=== PATIENT | female | born 1940 | race Caucasian/White ===

== ENCOUNTER 2016-10-06 19:55 | Emergency (ER) | payer OTHER ==
[~2016-10-06] VITALS: Ht 157.5 cm; Wt 56.2 kg
[2016-10-06 20:24] VITALS: BP 147/73
== END 2016-10-06 22:20 | disposition home or self-care (01) ==
LOC: ER 19:57
DX: S51.812A Laceration without foreign body of left forearm, initial encounter (principal); M19.90 Unspecified osteoarthritis, unspecified site; E11.9 Type 2 diabetes mellitus without complications; E07.9 Disorder of thyroid, unspecified; X58.XXXA Exposure to other specified factors, initial encounter; Y93.89 Activity, other specified; Y99.8 Other external cause status; Y92.89 Other specified places as the place of occurrence of the external cause

== ENCOUNTER 2016-10-10 22:40 | Inpatient (IN) | payer OTHER ==
[~2016-10-10] VITALS: Ht 157.5 cm; Wt 59.4 kg
[2016-10-10 23:32] LABS: Urine RBC None Seen /hpf (0 - 4)
[2016-10-10 23:39] LABS: Urine Bilirubin Negative (Negative); Urine Blood Negative /uL (Negative); Urine Color Yellow (Yellow); Urine Glucose Normal (Normal); Urine Ketone Negative (Negative); Urine Nitrite Negative (Negative); Urine Squamous Epithelial Cell FEW /hpf (<5); Urine Urobilinogen Normal (Negative)
[2016-10-11] LABS: Basophils # (auto) 0.1 uL; Basophils % (auto) 0.6 % (0.0-2.0); Eosinophils # (auto) 0.1 uL; Eosinophils % (auto) 0.3 % (0.0-7.0); Hematocrit 34.3 % (36.0-46.0); Hemoglobin 11.4 g/dL (12.2-16.2); Lymphocytes # (auto) 1.6 uL; Lymphocytes % (auto) 8.6 % (10.0-50.0); Mean Corpuscular Hgb Conc. 33.3 g/dL (32.0-36.0); Mean Corpuscular Volume 93.3 fL (80.0-100.0); Mean Platelet Volume 8.2 fL (7.4-10.4); Monocytes # (auto) 1.5 uL; Monocytes % (auto) 7.9 % (0.0-12.0); Neutrophils # (auto) 15.1 uL; Neutrophils % (auto) 82.6 % (37.0-80.0); Platelet Count (auto) 372 10^3/uL (140-450); Red Cell Distribution Width 13.8 % (11.6-16.0); SUSPECT VIEW TRANSMISSION; White Blood Cell 18.4 10^3/uL (4.4-10.8)
[2016-10-11 00:11] LABS: Albumin 3.5 g/dL (3.4-5.0); BUN/Creatinine Ratio 33.1; Potassium 3.7 mmol/L (3.5-5.1)
[2016-10-11 00:14] LABS: Bilirubin, Total 0.1 mg/dL (0.2-1.0); Total Protein 7.3 g/dL (6.4-8.2)
[2016-10-11] MEDS: SODIUM CHLORIDE 0.9% 1,000 ML IV ONE ×2 (06:57→07:30)
[2016-10-11] MEDS ORDERED: cefTRIAXone 1GM/50ML D5W 50 ML IV ONE (07:30)
[2016-10-11] MEDS ORDERED: DEXTROSE 10% 1,000 ML IV ONE (08:00)
[2016-10-11] MEDS ORDERED: LACTULOSE 20Gm/30ML SOLN PO PRN (09:15)
[2016-10-11] MEDS ORDERED: NITROGLYCERIN 0.4 MG SL TAB SL PRN (09:15)
[2016-10-11] MEDS ORDERED: LORazepam 0.5 MG TAB PO PRN (09:15)
[2016-10-11] MEDS ORDERED: HYDROcodone-ACET 5/325MG TAB PO PRN (09:15)
[2016-10-11] MEDS ORDERED: ACETAMINOPHEN 500 MG TAB PO PRN (09:15)
[2016-10-11] MEDS ORDERED: TEMAZEPAM 15 MG CAP PO PRN (09:15)
[2016-10-11] MEDS ORDERED: MORPHINE SULF INJ 2 MG/ML SYRINGE 1ML IV PRN ×2 (09:15)
[2016-10-11] MEDS ORDERED: PROMETHAZINE HCL 25 MG/ML 1ML IV PRN (09:15)
[2016-10-11] MEDS: D5W/SOD CHLO 0.9% 1,000 ML IV SCH ×2 (09:45→22:31)
[2016-10-11] MEDS: ENOXAPARIN SOD 40 MG/0.4 ML SYRINGE SC SCH (10:05)
[2016-10-11] MEDS ORDERED: GLYB5TAB8 PO (11:38)
[2016-10-11] MEDS ORDERED: LEVO100I PO (11:38)
[2016-10-11] MEDS ORDERED: FER325T PO (11:38)
[2016-10-11] MEDS ORDERED: SIMV-8 PO (11:38)
[2016-10-11] MEDS ORDERED: LIOT5TAB PO (11:38)
[2016-10-11] MEDS ORDERED: ASPI81CH43 PO (11:38)
[2016-10-11] MEDS ORDERED: AMOX500T92 PO (11:38)
[2016-10-11] MEDS: ACCU-CHEK COMFORT CURVE STRIP VI SCH ×5 (14:00→22:00)
[2016-10-11] MEDS ORDERED: AMOXICILLIN PO SCH (14:00)
[2016-10-11] MEDS: CLAVULANATE PO SCH ×2 (14:00→22:30)
[2016-10-11] MEDS: AMOXICILLIN PO SCH ×2 (14:00→22:30)
[2016-10-11] MEDS ORDERED: CLAVULANATE PO SCH (14:00)
[2016-10-11 17:02] VITALS: BP 100/60
[2016-10-11 21:35] VITALS: BP 98/52
[2016-10-12] MEDS: ACCU-CHEK COMFORT CURVE STRIP VI SCH ×7 (00:22→12:00)
[2016-10-12 04:30] VITALS: BP 131/71
[2016-10-12 05:58] LABS: Basophils # (auto) 0.1 uL; Basophils % (auto) 0.6 % (0.0-2.0); Eosinophils # (auto) 0.2 uL; Eosinophils % (auto) 1.8 % (0.0-7.0); Hematocrit 28.8 % (36.0-46.0); Hemoglobin 9.4 g/dL (12.2-16.2); Lymphocytes # (auto) 3.1 uL; Lymphocytes % (auto) 30.6 % (10.0-50.0); Mean Corpuscular Hemoglobin 30.8 pg (28.0-32.0); Mean Corpuscular Hgb Conc. 32.5 g/dL (32.0-36.0); Mean Corpuscular Volume 94.6 fL (80.0-100.0); Mean Platelet Volume 8.4 fL (7.4-10.4); Monocytes # (auto) 0.9 uL; Monocytes % (auto) 9.1 % (0.0-12.0); Neutrophils # (auto) 5.9 uL; Neutrophils % (auto) 57.9 % (37.0-80.0); Platelet Count (auto) 303 10^3/uL (140-450); White Blood Cell 10.2 10^3/uL (4.4-10.8)
[2016-10-12 06:00] VITALS: BP 118/69
[2016-10-12] MEDS: CLAVULANATE PO SCH (06:00)
[2016-10-12] MEDS: AMOXICILLIN PO SCH (06:00)
[2016-10-12 06:20] LABS: Albumin 2.5 g/dL (3.4-5.0); Calcium 8.1 mg/dL (8.5-10.1); Potassium 4.5 mmol/L (3.5-5.1)
[2016-10-12 06:23] LABS: Bilirubin, Total 0.2 mg/dL (0.2-1.0); Total Protein 5.5 g/dL (6.4-8.2)
[2016-10-12] MEDS: ENOXAPARIN SOD 40 MG/0.4 ML SYRINGE SC SCH (10:00)
[2016-10-12] MEDS: D5W/SOD CHLO 0.9% 1,000 ML IV SCH (11:55)
== END 2016-10-12 13:50 | disposition home or self-care (01) | DRG 639 ==
LOC: ER 22:40 → TELE 22:41 → TELE-E-ADS 10-11 11:41 → TELE-WESTW 10-11 14:06
PROVIDERS: ADMIT Internal Medicine; ATTEND Family Medicine
DX: E11.649 Type 2 diabetes mellitus with hypoglycemia without coma (principal); E11.21 Type 2 diabetes mellitus with diabetic nephropathy; D72.828 Other elevated white blood cell count; N18.3 Chronic kidney disease, stage 3 (moderate); E03.9 Hypothyroidism, unspecified; D63.8 Anemia in other chronic diseases classified elsewhere; E11.22 Type 2 diabetes mellitus with diabetic chronic kidney disease; K42.9 Umbilical hernia without obstruction or gangrene; K57.90 Diverticulosis of intestine, part unspecified, without perforation or abscess without bleeding; M19.90 Unspecified osteoarthritis, unspecified site; M06.9 Rheumatoid arthritis, unspecified; N17.9 Acute kidney failure, unspecified; Z82.49 Family history of ischemic heart disease and other diseases of the circulatory system; Z83.3 Family history of diabetes mellitus; Z90.710 Acquired absence of both cervix and uterus; Z84.1 Family history of disorders of kidney and ureter; Z79.899 Other long term (current) drug therapy; Z79.82 Long term (current) use of aspirin
CPT/HCPCS: 36415; 71010; 74176; 80053; 81001; 82962; 83605; 85025; 87040; 87086; 93005; 96365; 96372; J0696; J7042